=== PATIENT | male | born 1950 | race Caucasian/White ===

== ENCOUNTER 2020-04-04 08:15 | Outpatient (REF) | payer OTHER, SELFPAY ==
[2020-04-04 11:30] LABS: MANUAL DIFF FLAG NO
[2020-04-04 11:38] LABS: Basophils Absolute Auto 0.1 X10*3/uL (0.0-0.2); Basophils Percent Auto 0.8 % (0-2); Eosinophils Absolute Auto 0.2 X10*3/uL (0.0-0.4); Eosinophils Percent Auto 2.6 % (0-4); Hemoglobin 15.6 g/dl (14.0-18.0); Imm Gran Abs Auto 0.07 X10*3/uL (0.00-0.03); Imm Gran Pct Auto 0.9 % (0.0-0.4); Lymphocytes Absolute Auto 1.6 X10*3/uL (1.2-4.9); Lymphocytes Percent Auto 20.6 % (20-40); Mean Corpuscular HGB Conc 33.9 g/dl (31.0-36.0); Mean Corpuscular Hemoglobin 31.4 pg (27.0-33.0); Mean Corpuscular Volume 92.6 fL (80-98); Mean Platelet Volume 10.5 fL (9.4-12.4); Monocytes Absolute Auto 0.7 X10*3/uL (0.1-1.2); Monocytes Percent Auto 9.4 % (2-11); Neutrophils Absolute Auto 5.1 X10*3/uL (2.0-8.3); Neutrophils Percent Auto 65.7 % (45-73); Platelet Count 211 X10*3/uL (160-400); Red Blood Count 4.97 X10*6/uL (4.60-5.80); Red Cell Distribution Width 12.3 % (11.0-16.0); White Blood Count 7.8 X10*3/uL (4.8-10.8)
[2020-04-04 11:48] LABS: Estimated Average Glucose 117 mg/dL; Hemoglobin A1c % 5.7 %
[2020-04-04 11:51] LABS: Alanine Aminotransferase 24 U/L (0-40); Albumin Level 4.2 g/dL (3.5-5.0); Alkaline Phosphatase 49 U/L (39-117); Anion Gap 15 (12-20); Aspartate Amino Transferase 18 U/L (5-37); Bilirubin Total 0.6 mg/dL (0.0-1.0); Blood Urea Nitrogen 14 mg/dL (9-16); Calcium 8.4 mg/dL (8.4-10.2); Carbon Dioxide 26 mmol/L (22-29); Chloride 102 mmol/L (96-108); Cholesterol 203 mg/dL; Estimated Glomerular Filt Rate > 60; Glucose Fasting 108 mg/dL (60-99); HDL Cholesterol 35 mg/dL; LDL Cholesterol Calculated 123 mg/dl; Potassium 3.9 mmol/l (3.3-5.1); Sodium 139 mmol/L (135-145); Total Protein 7.5 g/dL (6.5-8.0); Triglycerides 225 mg/dL
== END 2020-04-04 08:16 | disposition home or self-care (01) ==
LOC: HO.HMGCLDS 08:15
PROVIDERS: PCP Internal Medicine; Visit Provider Internal Medicine
DX: R73.01 Impaired fasting glucose (principal); I10 Essential (primary) hypertension; E78.00 Pure hypercholesterolemia, unspecified; Z85.46 Personal history of malignant neoplasm of prostate
CPT/HCPCS: 36415; 80053; 80061; 83036; 85025

== ENCOUNTER 2021-05-17 07:38 | Outpatient (REF) | payer OTHER, SELFPAY ==
[2021-05-17 11:10] LABS: MANUAL DIFF FLAG NO
[2021-05-17 11:16] LABS: Basophils Percent Auto 0.7 % (0-2); Eosinophils Absolute Auto 0.1 X10*3/uL (0.0-0.4); Eosinophils Percent Auto 2.4 % (0-4); Hemoglobin 15.6 g/dl (14.0-18.0); Imm Gran Abs Auto 0.03 X10*3/uL (0.00-0.03); Imm Gran Pct Auto 0.5 % (0.0-0.4); Lymphocytes Absolute Auto 1.6 X10*3/uL (1.2-4.9); Lymphocytes Percent Auto 27.3 % (20-40); Mean Corpuscular HGB Conc 33.9 g/dl (31.0-36.0); Mean Corpuscular Hemoglobin 31.7 pg (27.0-33.0); Mean Corpuscular Volume 93.5 fL (80.0-98.0); Mean Platelet Volume 10.7 fL (9.4-12.4); Monocytes Absolute Auto 0.6 X10*3/uL (0.1-1.2); Monocytes Percent Auto 10.7 % (2-11); Neutrophils Absolute Auto 3.4 x10*3/uL (2.0-8.3); Neutrophils Percent Auto 58.4 % (45-73); Platelet Count 223 X10*3/uL (160-400); Red Blood Count 4.92 X10*6/uL (4.60-5.80); Red Cell Distribution Width 12.6 % (11.0-16.0); White Blood Count 5.9 X10*3/uL (4.8-10.8)
[2021-05-17 11:54] LABS: Alanine Aminotransferase 28 U/L (0-40); Albumin Level 4.4 g/dL (3.5-5.0); Alkaline Phosphatase 44 U/L (39-117); Anion Gap 16 (12-20); Aspartate Amino Transferase 22 U/L (5-37); Bilirubin Total 0.8 mg/dL (0.0-1.0); Blood Urea Nitrogen 14 mg/dL (9-16); Calcium 9.4 mg/dL (8.4-10.2); Carbon Dioxide 27 mmol/L (22-29); Chloride 102 mmol/L (96-108); Cholesterol 207 mg/dL; Estimated Glomerular Filt Rate > 60; Glucose Random 101 mg/dL (60-115); HDL Cholesterol 28 mg/dL; LDL Cholesterol Calculated 135 mg/dl; Potassium 3.8 mmol/L (3.3-5.1); Sodium 141 mmol/L (135-145); Total Protein 7.7 g/dL (6.5-8.0); Triglycerides 223 mg/dL
[2021-05-17 12:05] LABS: Free T4 (Free Thyroxine) 0.94 ng/dL (0.71-1.85); Prostate Specific Antigen < 0.05 ng/mL (<0.05-4.0); Thyroid Stimulating Hormone 2.55 uIU/mL (0.32-4.0)
[2021-05-17 12:18] LABS: Folate > 20.0 ng/mL (> or = 4.0); Vitamin B12 654 pg/mL (200-900)
[2021-05-17 14:21] LABS: Estimated Average Glucose 117 mg/dL; Hemoglobin A1c % 5.7 %
== END 2021-05-17 07:39 | disposition home or self-care (01) ==
LOC: HO.HMGCLDS 07:38
PROVIDERS: PCP Internal Medicine; Visit Provider Internal Medicine
DX: Z12.5 Encounter for screening for malignant neoplasm of prostate (principal); R73.02 Impaired glucose tolerance (oral); E78.00 Pure hypercholesterolemia, unspecified; C61 Malignant neoplasm of prostate; I10 Essential (primary) hypertension
CPT/HCPCS: 36415; 80053; 80061; 82607; 82746; 83036; 84153; 84439; 84443; 85025

== ENCOUNTER → 2022-06-21 11:04 | Outpatient (BNVA) | payer OTHER, SELFPAY | PROVIDERS: PCP Internal Medicine; Visit Provider Nurse Practitioner | DX: Z13.89 Encounter for screening for other disorder (principal) ==

== ENCOUNTER 2022-09-10 07:53 | Outpatient (REF) | payer OTHER, SELFPAY ==
[2022-09-10 11:39] LABS: MANUAL DIFF FLAG NO
[2022-09-10 11:59] LABS: Basophils Absolute Auto 0.1 X10*3/uL (0.0-0.2); Basophils Percent Auto 0.9 % (0-2); Eosinophils Absolute Auto 0.2 X10*3/uL (0.0-0.4); Eosinophils Percent Auto 2.3 % (0-4); Hematocrit 46.8 % (42.0-52.0); Hemoglobin 15.9 g/dl (14.0-18.0); Imm Gran Abs Auto 0.03 X10*3/uL (0.00-0.03); Imm Gran Pct Auto 0.5 % (0.0-0.4); Lymphocytes Absolute Auto 1.7 X10*3/uL (1.2-4.9); Lymphocytes Percent Auto 25.7 % (20-40); Mean Corpuscular Hemoglobin 31.8 pg (27.0-33.0); Mean Corpuscular Volume 93.6 fL (80.0-98.0); Mean Platelet Volume 10.7 fL (9.4-12.4); Monocytes Absolute Auto 0.6 X10*3/uL (0.1-1.2); Monocytes Percent Auto 9.5 % (2-11); Neutrophils Absolute Auto 3.9 x10*3/uL (2.0-8.3); Neutrophils Percent Auto 61.1 % (45-73); Platelet Count 229 X10*3/uL (160-400); Red Cell Distribution Width 12.5 % (11.0-16.0); White Blood Count 6.5 X10*3/uL (4.8-10.8)
[2022-09-10 12:55] LABS: Alanine Aminotransferase 20 U/L (0-40); Albumin Level 4.3 g/dL (3.5-5.0); Alkaline Phosphatase 47 U/L (39-117); Anion Gap 16 (12-20); Aspartate Amino Transferase 19 U/L (5-37); Bilirubin Total 1.1 mg/dL (0.0-1.0); Blood Urea Nitrogen 17 mg/dL (9-16); Calcium 9.3 mg/dL (8.4-10.2); Carbon Dioxide 26 mmol/L (22-29); Chloride 102 mmol/L (96-108); Cholesterol 191 mg/dL; Estimated Glomerular Filt Rate 59; Glucose Random 121 mg/dL (60-115); HDL Cholesterol 29 mg/dL; LDL Cholesterol Calculated 117 mg/dl; Sodium 140 mmol/L (135-145); Total Protein 7.5 g/dL (6.5-8.0); Triglycerides 228 mg/dL
[2022-09-10 13:00] LABS: Folate 16.5 ng/mL (> or = 4.0); Free T4 (Free Thyroxine) 0.82 ng/dL (0.71-1.85); Prostate Specific Antigen Scr < 0.10 ng/mL (<0.05-4.0); Thyroid Stimulating Hormone 3.46 uIU/mL (0.32-4.0); Vitamin B12 649 pg/mL (200-900)
== END 2022-09-10 07:54 | disposition home or self-care (01) ==
LOC: HO.HMGCLDS 07:53
PROVIDERS: PCP Internal Medicine; Visit Provider Internal Medicine
DX: E78.00 Pure hypercholesterolemia, unspecified (principal); C61 Malignant neoplasm of prostate; Z12.5 Encounter for screening for malignant neoplasm of prostate
CPT/HCPCS: 36415; 80053; 80061; 82607; 82746; 84153; 84439; 84443; 85025

== ENCOUNTER → 2022-10-01 11:21 | Outpatient (BNVA) | payer OTHER, SELFPAY | PROVIDERS: PCP Internal Medicine; Visit Provider Nurse Practitioner | DX: Z13.89 Encounter for screening for other disorder (principal) ==

== ENCOUNTER 2023-04-03 14:48 | Outpatient (AMB) | payer OTHER, SELFPAY ==
[2023-04-03 14:54] VITALS: BP 160/80; PULSE 100; O2SAT 98; BMI 27.5
--- NOTE | 2023-04-03 14:54 | A.OFFPC_ITS ---
Vital Signs 04/03/23 14:54 04/03/23 15:31 Height 5 ft 10 in Weight 192 lb BMI 27.5 BP 160/80 H 136/70 Blood Pressure Location Lt brachial Lt brachial Position Sitting Sitting Pulse 100 Pulse Source Pulse Oximeter Pulse Oximetry (%) 98 Oxygen Delivery Method Room Air Intake Visit Reasons: 6M Hypercholesterolemia/Switched with Allergies penicillin V Allergy (Mild, Verified 04/03/23 14:54) Unknown Medication List - Last Reconciled 04/03/23 by Thony Lopez MD coal tar 0.5% 1 appl topical 2XW hydrochlorothiazide 12.5 mg PO DAILY ketoconazole 2% 1 appl topical 3XW lactobacillus combination no.4 (Probiotic) 3,000 mmu cells PO DAILY lisinopril 20 mg PO DAILY loratadine (Claritin) 10 mg PO DAILY multivitamin 1 tab PO DAILY sod phos mono-sod phos dibasic 1.5 gram (OsmoPrep) 4 tabs PO Q15M 5 doses vardenafil 20 mg PO DAILY Tobacco use date assessed: 09/12/22 Fall risk assessment: No Falls in past year Last assessed Fall Risk: 04/03/23 Dental Screening Dental Screen Date: 04/03/23 Did you have a dental visit in the last 12 months?: Yes Did you have a dental problem in the last 6 months where you did not have access to dental care?: No Was dental information given to patient?: Patient has dentist HPI 6M Hypercholesterolemia/Switched with HPI Details 72-year-old overweight male smoker with a history of prostate cancer hypercholesterolemia impaired glucose tolerance hypertension last seen in September 2022 for physical exam. Patient's colonoscopy had positive Cologuard test colonography requested but denied by insurance advised to revisit next year [facility] Medical History Hx of flexible sigmoidoscopy Hypercholesterolemia Tobacco abuse Prostate cancer Impaired glucose tolerance Hypertension Surgical History H/O colonoscopy H/O prostatectomy History of inguinal hernia repair Family History Father Medical history unknown Mother Medical history unknown Social History Housing: House Alcohol intake: never Patient Tobacco Use Status: Former Tobacco user Years Smoked: smokes cigars e-Cigarette/Vaping Use: Never Used Second Hand Smoke Exposure: No service: No Current occupational status: retired Cognitive needs: No Hearing needs: No Vision needs: Yes Questionnaire PHQ-9 Over the last 2 weeks, how often have you been bothered by any of the following problems? 1. Little interest or pleasure in doing things: not at all 2. Feeling down, depressed, or hopeless: not at all 3. Trouble falling or staying asleep, or sleeping too much: not at all 4. Feeling tired or having little energy: not at all 5. Poor appetite or overeating: not at all 6. Feeling bad about yourself - or that you are a failure or have let yourself or your family down: not at all 7. Trouble concentrating on things, such as reading the newspaper or watching television: not at all 8. Moving or speaking so slowly that other people could have noticed. Or the opposite - being so fidgety or restless that you have been moving around a lot more than usual: not at all 9. Thoughts that you would be better off or of hurting yourself in some way: not at all Total score: 0 Depression Screening Interpretation: Negative Depression Screening Done: Yes Source: Developed by Drs. Booker Osuna, Winston Bassett and colleagues, with an educational aguilar from [employer]. Thrive Questionnaire Date Thrive assessed: 09/12/22 AUDIT C Alcohol Use Questionnaire (AUDIT-C) 1. How often do you have a drink containing alcohol?: Never 3. How often do you have six or more drinks on one occasion?: Never Total Score: 0 QUANG-7 AMB Questionnaire QUANG-7 Date QUANG - 7 assessed: 09/12/22 Source: Developed by Drs. Booker Osuna, Winston Bassett and colleagues, with an educational aguilar from [employer]. Physical exam (Primary Care) Vital Signs: Last Vital Signs Pulse 100 04/03/23 14:54 BP 160/80 H 04/03/23 14:54 Pulse Ox 98 04/03/23 14:54 Oxygen Delivery Method Room Air 04/03/23 14:54 BMI result Body Mass Index 27.5 Tobacco/Smoking Status: Tobacco use Status Tobacco use date assessed 09/12/22 04/03/23 14:55 Patient Tobacco Use Status Former Tobacco user 04/03/23 14:55 e-Cigarette/Vaping Use Never Used 04/03/23 14:55 PHQ-9: PHQ-9 Score PHQ-9: Total score 0 04/03/23 15:16 Depression Screening Interpretation: Negative Thrive Assessment: Date of Thrive Assessment Date Thrive assessed 09/12/22 04/03/23 14:55 Const General: alert; No acute distress Eyes Conjunctivae: conjunctivae normal Resp Auscultation: clear to auscultation bilaterally Cardio Rate: regular rate Rhythm: regular rhythm GI Inspection: Yes normal to inspection Extrem General: Yes normal to inspection and No edema Office Procedures Flu Questionnaire Does the patient have a severe egg allergy?: No Does the patient have severe life threatening allergies?: No Does the patient have a fever or illness today?: No Has the patient ever had Guillain-Denver Syndrome?: No Has the patient ever had any past reaction to a flu shot?: No Immunizations flu vacc [id number] 6mos up(PF) 60 mcg(15 mcgx4)/0.5 mL IM syringe Performing Provider: Thony Lopez MD [facility] Administered by: CHRISTOPHER Colin on 04/03/23 15:17 Dose Route Admin Location Dispensed Lot Number Expiration Date NDC [employer]ting Supervisor 0.5 mL IM Left Deltoid 0.5 mL [id number] 12/07/23 [id number] [employer] VIS Given Date VIS Provided VIS Publication Date 04/03/23 Single Vaccine 21 Eligibility Eligibility Date Funding Source Not [facility] Eligible 04/03/23 Private Assessment and Plan Assessment & Plan (1) Positive colorectal cancer screening using Cologuard test: Comment: 12/2021 Code(s): R19.5 - Other fecal abnormalities Plan: Patient has met with gastroenterology and will consider testing next year (2) Prostate cancer: Comment: 1999 Code(s): C61 - Malignant neoplasm of prostate Plan: Stable (3) Tobacco abuse: Code(s): Z72.0 - Tobacco use Plan: Strongly advised to stop summation point (4) Hypercholesterolemia: Code(s): E78.00 - Pure hypercholesterolemia, unspecified Plan: Avoid fried foods, chicken skin, eggs, butter margarine, pastries and meat. Be it pork or beef they have a lot of cholesterol LDL goal of less than 130 and triglyceride of less than 150 (5) Impaired glucose tolerance: Code(s): R73.02 - Impaired glucose tolerance (oral) Plan: Decrease the amount of carbohydrate intake, pasta, bread, rice and potatoes are all sugar and that is aside from all the sweet stuff, remember that fruits are good but they are Sweet also. (6) Hypertension: Comment: cont same meds Code(s): I10 - Essential (primary) hypertension Plan: Continue with blood pressure medication. Decrease salt intake and exercise patient takes lisinopril 20 mg once a day and hydrochlorothiazide 12.5 mg once a day (7) Eczema: Code(s): L30.9 - Dermatitis, unspecified (8) Tinea cruris: Code(s): B35.6 - Tinea cruris Orders: Orders Influenza [id number] Immunization Today Z23 - Encounter for immunization Comprehensive Met. Panel 6 Months R73.02 - Impaired glucose tolerance (oral) Thyroid Stimulating Hormone 6 Months R73.02 - Impaired glucose tolerance (oral) Hemoglobin A1c 6 Months R73.02 - Impaired glucose tolerance (oral) Free T4 (Free Thyroxine) 6 Months R73.02 - Impaired glucose tolerance (oral) Complete Blood Count Auto Diff 6 Months R73.02 - Impaired glucose tolerance (oral) Lipid Panel 6 Months E78.00 - Pure hypercholesterolemia, unspecified Vitamin B12 and Folate 6 Months E78.00 - Pure hypercholesterolemia, unspecified Medications: New clotrimazole 1% 1 appl topical BID 4 weeks 45 grams 0RF B35.6 - Tinea cruris mometasone 0.1% 1 appl topical DAILY 2 weeks 45 grams 0RF L30.9 - Dermatitis, unspecified Coding Level of Care Code Est Pt Level 4 (80772) Diagnoses Positive colorectal cancer screening using Cologuard test R19.5 Prostate cancer C61 Tobacco abuse Z72.0 Hypercholesterolemia E78.00 Impaired glucose tolerance R73.02 Hypertension I10 Eczema L30.9 Tinea cruris B35.6
[2023-04-03 15:31] VITALS: BP 136/70
== END 2023-04-03 15:44 | disposition home or self-care (01) ==
PROVIDERS: PCP Internal Medicine; Visit Provider Internal Medicine
DX: R19.5 Other fecal abnormalities (principal); C61 Malignant neoplasm of prostate; Z72.0 Tobacco use; E78.00 Pure hypercholesterolemia, unspecified; R73.02 Impaired glucose tolerance (oral); I10 Essential (primary) hypertension; L30.9 Dermatitis, unspecified; B35.6 Tinea cruris; Z23 Encounter for immunization
CPT/HCPCS: 90471; 90686; 99214

== ENCOUNTER 2023-10-01 12:02 | Outpatient (AMB) | payer OTHER, SELFPAY ==
--- NOTE | 2023-10-01 12:10 | A.OFFVIS_ITS ---
Vital Signs 10/01/23 12:17 Height 5 ft 10 in Weight 195 lb 5.273 oz BMI 28.0 BP 160/77 H Blood Pressure Location Lt brachial Position Sitting Pulse 81 Intake Visit Reasons: 1 yr follow up Intake Note: Patient presents to in office visit today in a 1 year follow up to discuss colonoscopy prep. CC: Patient denies having any GI symptoms or concerns. Hygiene Assistant Required: No Accompanied by: Self / Same As Patient Allergies penicillin V Allergy (Mild, Verified 10/01/23 12:19) Unknown HPI HPI 1 yr follow up: Details: Assessment & Plan (1) Positive colorectal cancer screening using Cologuard test: Code(s): R19.5 - Other fecal abnormalities Plan: WE DISCUSSED ALL OF THE PATIENT'S OPTIONS AND HE UNDERSTANDS that he is at risk for colorectal cancer without any screenings. However, he had a very hard time with the prep and apparently has a chronic nausea/vomiting problem at his baseline. He would be interested if we could get pill prep covered but this time only OsmoPrep is covered not suit tab and that is not currently available. 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 He is actually not while about having a colonoscopy at all but he does understand that having a positive Cologuard is concerning. It is not that I think he immediately as colon cancer but he likely has a polyp that needs to come out to ensure his best future Colon Health. This is especially true be cause he is otherwise fairly healthy. At this point we think it is fair to revisit the problem any year. At that point either his insurance coverage may expand what they will except as a pill prep and or the OsmoPrep may again become available. He agrees that this is a good option. CORRESPONDENCE On 10/01/22 @ 07:25 Leanna Colon Wrote To VikiTonia Per Radiology & CT dept, CT Colonography is only performed if a previous colonoscopy was inconclusive or incomplete. Patient did have an appt scheduled for a colonoscopy on 05/29/22 but it had to be cancelled because the patient could not tolerate the prep. Please advise. On 09/30/22 @ 11:50 Tonia Drew Wrote To Erica Taylor (2) This patient is on my schedule for Friday but never did CT colonography.? Please call find out what happened with that since this appointment is pretty much wasted without having that information. TODAY'S VISIT He could not tolerate any prep covered by his insurance either large ro smaller volume. It causes him to vomit and when he vomits ?I will vomit for 3 or 4 days continuously. ? At this point he is unwilling to try again. The only hope I hold out is if his insurance decides to cover sutab, although he has some doubts because ?is it the same stuff liquid is made of? ? I give him the name of the medication he will call once a year to determine if this becomes covered. At this point he understands the risks versus benefits of avoiding colonoscopy with a positive Cologuard and he opts to wait. Return office visit as needed. [facility] Medical History Hx of flexible sigmoidoscopy Hypercholesterolemia Tobacco abuse Prostate cancer Impaired glucose tolerance Hypertension Surgical History H/O colonoscopy H/O prostatectomy History of inguinal hernia repair Family History Father Medical history unknown Mother Medical history unknown Social History Housing: House Alcohol intake: never Patient Tobacco Use Status: Former Tobacco user Years Smoked: smokes cigars e-Cigarette/Vaping Use: Never Used Second Hand Smoke Exposure: No service: No Current occupational status: retired Cognitive needs: No Hearing needs: No Vision needs: Yes Review of Systems Const Denies fatigue, Denies fever(s), Denies night sweats, Denies poor appetite and Denies weight loss ENT Reports Normal hearing present, Denies dental pain, Denies dysphagia, Denies hearing loss, Denies mouth pain, Denies odynophagia, Denies throat swelling, Denies tongue swelling and Reports other (Dentition adequate) Card Reports no additional complaints Resp Reports no additional complaints GI Details: Denies abdominal pain, Denies melena, Denies bloating, Denies hematochezia, Denies constipation, Denies GI cramping, Denies dysphagia, Denies excessive flatus, Denies early satiety, Denies heartburn, Denies diarrhea, Denies nausea, Denies odynophagia, Denies vomiting and Denies hematemesis Skin/Breast Denies pruritus, Denies lesions, Denies rash and Denies jaundice Neuro Reports Normal hearing present and Denies Abnormal speech present Endo Denies fatigue Aller/Immun Denies throat swelling and Denies tongue swelling Physical Exam Vital Signs: Last Vital Signs Pulse 81 10/01/23 12:17 BP 160/77 H 10/01/23 12:17 BMI result Body Mass Index 28.0 Const General: cooperative, no acute distress, well developed and well groomed Nutritional Appearance: average body habitus and well nourished Orientation/consciousness: oriented to person, oriented to place and oriented to time Limitations: No language barrier HEENT Head: Yes normocephalic and Yes atraumatic Eyes General: appearance normal, both eyes and all related structures Pupils: Equal, round and reactive pupils present Neck Neck: Yes normal visual inspection and Yes no lymphadenopathy Thyroid: Thyroid normal Resp Effort & Inspection: normal respiratory effort and able to speak in complete sentences Auscultation: clear to auscultation bilaterally Cardio Rate: regular rate Rhythm: regular rhythm Heart sounds: Normal, physiologic split S2 sound present Peripheral pulses: radial pulses present and posterior tibial pulses present GI Inspection: No distended and No Abdominal panniculus present Palpation (GI): Soft to palpation, nontender, no guarding, not rigid and No hepatosplenomegaly present Percussion: Yes normal to percussion Auscultation: normal bowel sounds Rectal Exam - Male: Yes deferred Skin General skin exam: no rashes or lesions noted, turgor normal, skin not dry, no jaundice, No spider nevi and no striae Rashes: no rashes Nails: normal Neuro General: oriented to person, oriented to place and oriented to time Cranial nerves: Yes Equal, round and reactive pupils present and Yes Normal hearing present Speech: No Abnormal speech present Extrem General: Yes normal to inspection, No clubbing, No cyanosis and No edema Psych Appearance: grossly normal and well kempt Mental Status: mental status grossly normal Speech and movement: Normal speech and movement present Affect: normal affect Attitude: cooperative Thought process: Normal thought process present and not confabulating Thought content: Normal thought content present Insight: Fair insight present (Psych) Judgement: Fair judgement present (Psych) Assessment & Plan Assessment & Plan (1) Positive colorectal cancer screening using Cologuard test: Comment: 12/2021 Code(s): R19.5 - Other fecal abnormalities Category: Medical (2) Colonoscopy refused: Comment: Patient could not tolerate any the prep drinks either PEG or the lower volume Suprep waiting for possible insurance to approve suit tab Code(s): Z53.20 - Procedure and treatment not carried out because of patient's decision for unspecified reasons Category: Medical Plan He could not tolerate any prep covered by his insurance either large ro smaller volume. It causes him to vomit and when he vomits ?I will vomit for 3 or 4 days continuously. ? At this point he is unwilling to try again. The only hope I hold out is if his insurance decides to cover suit tab, although he has some doubts because ?is it the same stuff liquid is made of? ? I give him the name of the medication he will call once a year to determine if this becomes covered. At this point he understands the risks versus benefits of avoiding colonoscopy with a positive Cologuard and he opts to wait. Return office visit as needed. Medications: Discontinued sod phos mono-sod phos dibasic 1.5 gram (OsmoPrep) administer with 240 mL of clear fluid Discontinued Reason: Patient Completed Course 4 tabs PO Q15M 32 tabs 0RF R19.5 - Other fecal abnormalities Coding Level of Care Code Est Pt Level 3 (48556) Diagnoses Positive colorectal cancer screening using Cologuard test R19.5 Colonoscopy refused Z53.20
[2023-10-01 12:17] VITALS: BP 160/77; PULSE 81; BMI 28.0
== END 2023-10-01 12:38 | disposition home or self-care (01) ==
PROVIDERS: PCP Internal Medicine; Visit Provider Nurse Practitioner
DX: R19.5 Other fecal abnormalities (principal); Z53.20 Procedure and treatment not carried out because of patient's decision for unspecified reasons
CPT/HCPCS: 99213

== ENCOUNTER → 2023-10-01 12:02 | Outpatient (BNVA) | payer OTHER, SELFPAY | PROVIDERS: PCP Internal Medicine; Visit Provider Nurse Practitioner ==

== ENCOUNTER 2024-03-03 08:23 | Outpatient (REF) | payer OTHER, SELFPAY ==
[2024-03-03 10:12] LABS: Basophils Absolute Auto 0.1 X10*3/uL (0.0-0.2); Basophils Percent Auto 1.4 % (0-2); Eosinophils Absolute Auto 0.2 X10*3/uL (0.0-0.4); Eosinophils Percent Auto 2.6 % (0-4); Hematocrit 44.6 % (42.0-52.0); Hemoglobin 15.5 g/dl (14.0-18.0); Imm Gran Abs Auto 0.02 X10*3/uL (0.00-0.03); Imm Gran Pct Auto 0.3 % (0.0-0.4); Lymphocytes Absolute Auto 1.5 X10*3/uL (1.2-4.9); Lymphocytes Percent Auto 22.7 % (20-40); MANUAL DIFF FLAG NO; Mean Corpuscular HGB Conc 34.8 g/dl (31.0-36.0); Mean Corpuscular Hemoglobin 31.6 pg (27.0-33.0); Mean Platelet Volume 10.2 fL (9.4-12.4); Monocytes Absolute Auto 0.7 X10*3/uL (0.1-1.2); Monocytes Percent Auto 10.4 % (2-11); Neutrophils Percent Auto 62.6 % (45-73); Platelet Count 214 X10*3/uL (160-400); Red Cell Distribution Width 12.5 % (11.0-16.0); White Blood Count 6.4 X10*3/uL (4.8-10.8)
[2024-03-03 10:31] LABS: Estimated Average Glucose 111 mg/dL; Hemoglobin A1c % 5.5 % (<6.0); Total Hemoglobin (HGBA1C) 3830.1022 umol/L
[2024-03-03 10:39] LABS: Alanine Aminotransferase 19 U/L (0-40); Albumin Level 4.2 g/dL (3.5-5.0); Alkaline Phosphatase 46 U/L (39-117); Anion Gap 12 (12-20); Aspartate Amino Transferase 19 U/L (5-37); Bilirubin Total 0.7 mg/dL (0.0-1.0); Blood Urea Nitrogen 14 mg/dL (9-16); Calcium 9.5 mg/dL (8.4-10.2); Carbon Dioxide 28 mmol/L (22-29); Chloride 104 mmol/L (96-108); Cholesterol 187 mg/dL (<200); Estimated Glomerular Filt Rate 60; Glucose Random 114 mg/dL (60-115); HDL Cholesterol 30 mg/dL (>40); LDL Cholesterol Calculated 126 mg/dL (<100); Potassium 3.6 mmol/L (3.3-5.1); Sodium 140 mmol/L (135-145); Total Protein 7.8 g/dL (6.5-8.0); Triglycerides 155 mg/dL (<150)
[2024-03-03 10:59] LABS: Folate 14.4 ng/mL (> or = 4.0); Vitamin B12 812 pg/mL (200-900)
[2024-03-03 11:01] LABS: Free T4 (Free Thyroxine) 0.93 ng/dL (0.71-1.85)
== END 2024-03-03 08:24 | disposition home or self-care (01) ==
LOC: HO.HMGCLDS 08:23
PROVIDERS: PCP Internal Medicine; Visit Provider Internal Medicine
DX: R73.02 Impaired glucose tolerance (oral) (principal); E78.00 Pure hypercholesterolemia, unspecified
CPT/HCPCS: 36415; 80053; 80061; 82607; 82746; 83036; 84439; 84443; 85025

== ENCOUNTER 2024-03-05 13:21 | Outpatient (AMB) | payer OTHER, SELFPAY ==
--- NOTE | 2024-03-05 13:31 | A.OFFPC_ITS ---
Vital Signs 03/05/24 13:32 Height 5 ft 10 in Weight 187 lb 2 oz BMI 26.8 BP 128/72 Blood Pressure Location Lt brachial Position Sitting Pulse 82 Pulse Source Pulse Oximeter Pulse Oximetry (%) 97 Oxygen Delivery Method Room Air Intake Visit Reasons: PE Intake Note: Patient is here today for a physical. Mar[place] Carver Required: No Body Trimmer: Not Required per policy Accompanied by: Self / Same As Patient Allergies penicillin V Allergy (Mild, Verified 03/05/24 13:32) Unknown Medication List - Last Reconciled 03/05/24 by Thony Lopez MD clotrimazole 1% 1 appl topical BID 4 weeks coal tar 0.5% 1 appl topical 2XW hydrochlorothiazide 12.5 mg PO DAILY ketoconazole 2% 1 appl topical 3XW lactobacillus combination no.4 (Probiotic) 3,000 mmu cells PO DAILY lisinopril 20 mg PO DAILY loratadine (Claritin) 10 mg PO DAILY mometasone 0.1% 1 appl topical DAILY 2 weeks multivitamin 1 tab PO DAILY triamcinolone acetonide 0.1% 1 appl topical BID vardenafil 20 mg PO DAILY Tobacco use date assessed: 03/05/24 Fall risk assessment: No Falls in past year Last assessed Fall Risk: 03/05/24 Dental Screening Dental Screen Date: 03/05/24 Did you have a dental visit in the last 12 months?: Yes Did you have a dental problem in the last 6 months where you did not have access to dental care?: No Was dental information given to patient?: Patient has dentist HPI PE HPI Details 73-year-old male(noted 8 lb weight loss) smoker with prostate cancer hypercholesterolemia impaired glucose tolerance hypertension coming in for physical exam last seen in 03/28/2023. Patient follows up with Gastroenterology 09/27/2023 declined colonoscopy. [facility] Medical History (Updated 03/05/24 @ 13:59 by Thony Lopez MD) Colon cancer screening Hx of flexible sigmoidoscopy Hypercholesterolemia Tobacco abuse Prostate cancer Impaired glucose tolerance Hypertension Surgical History H/O colonoscopy H/O prostatectomy History of inguinal hernia repair Family History Father Medical history unknown Mother Medical history unknown Social History Housing: House Alcohol intake: never Patient Tobacco Use Status: Former Tobacco user Years Smoked: smokes cigars e-Cigarette/Vaping Use: Never Used Second Hand Smoke Exposure: No service: No Current occupational status: retired Cognitive needs: No Hearing needs: No Vision needs: Yes Questionnaire PHQ-9 Over the last 2 weeks, how often have you been bothered by any of the following problems? 1. Little interest or pleasure in doing things: not at all 2. Feeling down, depressed, or hopeless: not at all 3. Trouble falling or staying asleep, or sleeping too much: not at all 4. Feeling tired or having little energy: not at all 5. Poor appetite or overeating: not at all 6. Feeling bad about yourself - or that you are a failure or have let yourself or your family down: not at all 7. Trouble concentrating on things, such as reading the newspaper or watching television: not at all 8. Moving or speaking so slowly that other people could have noticed. Or the opposite - being so fidgety or restless that you have been moving around a lot more than usual: not at all 9. Thoughts that you would be better off or of hurting yourself in some way: not at all Total score: 0 Depression Screening Interpretation: Negative Depression Screening Done: Yes Source: Developed by Drs. Booker Osuna, Kriss Karimi, Winston Lee and colleagues, with an educational aguilar from [employer]. Thrive Questionnaire Date Thrive assessed: 03/05/24 I am a: Patient What is your living situation today?: I have a steady place to live Within the past 12 months, did the food you bought not last and you didn't have the money to get more?: Never true Within the past 12 months, did you worry whether your food would run out before you got money to buy more?: Never true Do you have trouble paying for medicines?: No Do you have trouble getting transportation to medical appointments?: No Do you have trouble paying your heating and electricity bill?: No Do you have trouble taking care of your child, family member or friend?: No Do you have trouble with day-to-day activities such as bathing, preparing meals, shopping, managing finances, etc.?: No Are you currently unemployed and looking for a job?: No Are you interested in more education?: No Please select the resources that you would like help with: None Currently or been in a relationship where the following occur: No concerns reported THRIVE Score: 0 AUDIT C Alcohol Use Questionnaire (AUDIT-C) 1. How often do you have a drink containing alcohol?: Monthly or less 2. How many drinks containing alcohol do you have on a typical day when you are drinking?: 1 or 2 3. How often do you have six or more drinks on one occasion?: Never Total Score: 1 QUANG-7 AMB Questionnaire QUANG-7 Date QUANG - 7 assessed: 03/05/24 Feeling nervous, anxious, or on edge: 0 = Not at all Not being able to stop or control worryin = Not at all Worrying too much about different things: 0 = Not at all Trouble relaxin = Not at all Being so restless that it is hard to sit still: 0 = Not at all Becoming easily annoyed or irritable: 0 = Not at all Feeling afraid as if something awful might happen: 0 = Not at all Total QUANG-7 score (0-4 normal; 5-9 mild; 10-14 moderate; 15-21 severe): 0 Source: Developed by Drs. Booker Osuna, Kriss Karimi, Winston Lee and colleagues, with an educational aguilar from [employer]. Review of Systems Const Denies poor appetite and Denies weakness Eyes Denies no additional complaints ENT Reports Normal hearing present, Denies dizziness, Denies nasal congestion, Denies tinnitus and Denies sore throat Card Denies chest pain, Denies syncope, Denies rapid heart rate and Denies dyspnea Resp Denies cough and Denies dyspnea GI Denies change in stool character, Reports constipation, Denies diarrhea, Denies nausea and Denies vomiting Denies dysuria and Denies urinary frequency Neuro Reports Normal hearing present, Denies confusion, Denies dizziness, Denies sync ope and Denies weakness Psych Denies confusion Physical exam (Primary Care) Vital Signs: Last Vital Signs Pulse 82 03/05/24 13:32 BP 128/72 03/05/24 13:32 Pulse Ox 97 03/05/24 13:32 Oxygen Delivery Method Room Air 03/05/24 13:32 BMI result Body Mass Index 26.8 Tobacco/Smoking Status: Tobacco use Status Tobacco use date assessed 03/05/24 03/05/24 13:37 Patient Tobacco Use Status Former Tobacco user 03/05/24 13:37 e-Cigarette/Vaping Use Never Used 03/05/24 13:37 PHQ-9: PHQ-9 Score PHQ-9: Total score 0 03/05/24 13:37 Depression Screening Interpretation: Negative Thrive Assessment: Date of Thrive Assessment Date Thrive assessed 03/05/24 03/05/24 13:37 Currently or been in a relationship where the following occur: No concerns reported Const General: No confusion Orientation/consciousness: No confusion HENMT Head: Yes normocephalic Ears: external ears normal and TM's normal bilaterally Face and sinus: Yes normal facial exam Mouth: moist mucous membranes Throat: Yes tonsils normal Eyes Conjunctivae: conjunctivae normal Pupils: Equal, round and reactive pupils present and Pupil accommodation reflex normal Direct Ophthalmoscopy: normal light reflex Neck Neck: No lymphadenopathy Thyroid: Thyroid normal Chest Chest palpation & inspection: normal inspection of the chest Resp Effort & Inspection: normal respiratory effort and no audible wheezes Auscultation: clear to auscultation bilaterally, no crackles, no wheezes and lung sounds not diminished Cardio Rate: regular rate Rhythm: regular rhythm Peripheral pulses: radial pulses present and dorsalis pedis present GI Palpation (GI): no masses Auscultation: normal bowel sounds and normoactive bowel sounds Rectal Exam - Male: Yes deferred Skin General skin exam: no rashes or lesions noted Rashes: no rashes Neuro General: No confusion Cranial nerves: Yes Equal, round and reactive pupils present and Yes Normal hearing present Cognition (Neuro): normal cognition Gait exam (Neuro): Normal gait present Motor exam (neuro): 5/5 motor strength present throughout Deep tendon reflexes (DTR's): Right brachioradialis reflex intensity grade: 2+, Left brachioradialis reflex intensity grade: 2+, Right patellar reflex intensity grade: 2+ and Left patellar reflex intensity grade: 2+ Extrem General: No edema Assessment and Plan Assessment & Plan (1) Annual physical exam: Code(s): Z00.00 - Encounter for general adult medical examination without abnormal findings Plan: Patient is advised to eat healthy, keep well hydrated, keep active and have adequate sleep. (2) Colonoscopy refused: Comment: Patient could not tolerate any the prep drinks either PEG or the lower volume Suprep waiting for possible insurance to approve suit tab Code(s): Z53.20 - Procedure and treatment not carried out because of patient's decision for unspecified reasons Plan: Did received notes from Gastroenterology and declined colonoscopy (3) Prostate cancer: Comment: 1999 Code(s): C61 - Malignant neoplasm of prostate Plan: Stable (4) Tobacco abuse: Code(s): Z72.0 - Tobacco use Plan: Patient is strongly advised to stop smoking! (5) Hypercholesterolemia: Code(s): E78.00 - Pure hypercholesterolemia, unspecified Plan: Avoid fried foods, chicken skin, eggs, butter margarine, pastries and meat. Be it pork or beef they have a lot of cholesterol LDL goal of less than 130 and triglyceride of less than 150 (6) Impaired glucose tolerance: Code(s): R73.02 - Impaired glucose tolerance (oral) Plan: Decrease the amount of carbohydrate intake, pasta, bread, rice and potatoes are all sugar and that is aside from all the sweet stuff, remember that fruits are good but they are Sweet also. (7) Hypertension: Comment: cont same meds Code(s): I10 - Essential (primary) hypertension Plan: Continue with blood pressure medication. Decrease salt intake and exercise patient is on hydrochlorothiazide and lisinopril (8) Psoriasis: Code(s): L40.9 - Psoriasis, unspecified Coding Level of Care Code Est Pt Prev Care >65y(76830) Diagnoses Annual physical exam Z00.00 Colonoscopy refused Z53.20 Prostate cancer C61 Tobacco abuse Z72.0 Hypercholesterolemia E78.00 Impaired glucose tolerance R73.02 Hypertension I10 Psoriasis L40.9
[2024-03-05 13:32] VITALS: BP 128/72; PULSE 82; O2SAT 97; BMI 26.8
== END 2024-03-05 14:15 | disposition home or self-care (01) ==
PROVIDERS: PCP Internal Medicine; Visit Provider Internal Medicine
DX: Z00.00 Encounter for general adult medical examination without abnormal findings (principal); Z53.20 Procedure and treatment not carried out because of patient's decision for unspecified reasons; C61 Malignant neoplasm of prostate; Z72.0 Tobacco use; E78.00 Pure hypercholesterolemia, unspecified; R73.02 Impaired glucose tolerance (oral); I10 Essential (primary) hypertension; L40.9 Psoriasis, unspecified

== ENCOUNTER → 2024-03-05 13:21 | Outpatient (BNVA) | payer OTHER, SELFPAY | PROVIDERS: PCP Internal Medicine; Visit Provider Internal Medicine | DX: Z00.00 Encounter for general adult medical examination without abnormal findings (principal); C61 Malignant neoplasm of prostate; E78.00 Pure hypercholesterolemia, unspecified; R73.02 Impaired glucose tolerance (oral); I10 Essential (primary) hypertension; L40.9 Psoriasis, unspecified; Z79.899 Other long term (current) drug therapy; Z72.0 Tobacco use | CPT/HCPCS: 96127 ==

== ENCOUNTER 2024-08-26 10:02 | Outpatient (AMB) | payer OTHER, SELFPAY ==
--- NOTE | 2024-08-26 10:06 | A.OFFVIS_ITS ---
Intake Visit Reasons: Hypertension Allergies penicillin V Allergy (Mild, Verified 03/05/24 13:32) Unknown [facility] Medical History (Updated 03/05/24 @ 13:59 by Thony Lopez MD) Colon cancer screening Hx of flexible sigmoidoscopy Hypercholesterolemia Tobacco abuse Prostate cancer Impaired glucose tolerance Hypertension Surgical History H/O colonoscopy H/O prostatectomy History of inguinal hernia repair Family History Father Medical history unknown Mother Medical history unknown Social History Housing: House Alcohol intake: never Patient Tobacco Use Status: Former Tobacco user Years Smoked: smokes cigars e-Cigarette/Vaping Use: Never Used Second Hand Smoke Exposure: No service: No Current occupational status: retired Cognitive needs: No Hearing needs: No Vision needs: Yes Physical Exam Const General: alert; No acute distress Eyes Conjunctivae: conjunctivae normal Resp Auscultation: clear to auscultation bilaterally Cardio Rate: regular rate Rhythm: regular rhythm GI Inspection: Yes normal to inspection Extrem General: Yes normal to inspection and No edema Assessment & Plan Assessment & Plan (1) Hypertension: Comment: cont same meds Code(s): I10 - Essential (primary) hypertension Category: Medical Plan: Continue with blood pressure medication. Decrease salt intake and exercise on hydrochlorothiazide 12.5 mg once a day lisinopril 20 mg once a day (2) Impaired glucose tolerance: Code(s): R73.02 - Impaired glucose tolerance (oral) Category: Medical Plan: Decrease the amount of carbohydrate intake, pasta, bread, rice and potatoes are all sugar and that is aside from all the sweet stuff, remember that fruits are good but they are Sweet also. (3) Tobacco abuse: Code(s): Z72.0 - Tobacco use Category: Medical Plan: Patient is strongly advised to stop smoking (4) Hypercholesterolemia: Code(s): E78.00 - Pure hypercholesterolemia, unspecified Category: Medical Plan: Avoid fried foods, chicken skin, eggs, butter margarine, pastries and meat. Be it pork or beef they have a lot of cholesterol LDL goal of less than 130 and triglyceride of less than 150. (5) Psoriasis: Code(s): L40.9 - Psoriasis, unspecified Category: Medical Plan: Continue to follow-up with dermatology Coding Level of Care Code Est Pt Level 4 (60407) Diagnoses Hypertension I10 Impaired glucose tolerance R73.02 Tobacco abuse Z72.0 Hypercholesterolemia E78.00 Psoriasis L40.9
--- NOTE | 2024-08-26 10:08 | MHC.PC.OV ---
Vital Signs 08/26/24 10:10 Height 5 ft 10 in Weight 194 lb BMI 27.8 BP 160/72 H Blood Pressure Location Lt brachial Position Sitting Pulse 87 Pulse Source Pulse Oximeter Pulse Oximetry (%) 96 Oxygen Delivery Method Room Air Intake Visit Reasons: Hypertension Allergies penicillin V Allergy (Mild, Verified 08/26/24 10:10) Unknown Medication List - Last Reconciled 08/26/24 by Thony Lopez MD clotrimazole 1% 1 appl topical BID 4 weeks coal tar 0.5% 1 appl topical 2XW hydrochlorothiazide 12.5 mg PO DAILY ketoconazole 2% 1 appl topical 3XW lactobacillus combination no.4 (Probiotic) 3,000 mmu cells PO DAILY lisinopril 20 mg PO DAILY loratadine (Claritin) 10 mg PO DAILY mometasone 0.1% 1 appl topical DAILY 2 weeks multivitamin 1 tab PO DAILY triamcinolone acetonide 0.1% 1 appl topical BID vardenafil 20 mg PO DAILY Tobacco use date assessed: 08/26/24 Fall risk assessment: No Falls in past year Last assessed Fall Risk: 08/26/24 Dental Screening Dental Screen Date: 08/26/24 Did you have a dental visit in the last 12 months?: Yes Did you have a dental problem in the last 6 months where you did not have access to dental care?: No Was dental information given to patient?: Patient has dentist [facility] Medical History (Updated 03/05/24 @ 13:59 by Thony Lopez MD) Colon cancer screening Hx of flexible sigmoidoscopy Hypercholesterolemia Tobacco abuse Prostate cancer Impaired glucose tolerance Hypertension Surgical History H/O colonoscopy H/O prostatectomy History of inguinal hernia repair Family History Father Medical history unknown Mother Medical history unknown Social History Housing: House Alcohol intake: never Patient Tobacco Use Status: Former Tobacco user Tobacco use type: Cigarette Years Smoked: smokes cigars e-Cigarette/Vaping Use: Never Used Second Hand Smoke Exposure: No service: No Current occupational status: retired Cognitive needs: No Hearing needs: No Vision needs: Yes Questionnaire PHQ-9 Over the last 2 weeks, how often have you been bothered by any of the following problems? 1. Little interest or pleasure in doing things: not at all 2. Feeling down, depressed, or hopeless: not at all 3. Trouble falling or staying asleep, or sleeping too much: not at all 4. Feeling tired or having little energy: not at all 5. Poor appetite or overeating: not at all 6. Feeling bad about yourself - or that you are a failure or have let yourself or your family down: not at all 7. Trouble concentrating on things, such as reading the newspaper or watching television: not at all 8. Moving or speaking so slowly that other people could have noticed. Or the opposite - being so fidgety or restless that you have been moving around a lot more than usual: not at all 9. Thoughts that you would be better off or of hurting yourself in some way: not at all Total score: 0 Depression Screening Interpretation: Negative Depression Screening Done: Yes Source: Developed by Drs. Booker Osuna, Kriss Karimi, Winston Lee and colleagues, with an educational aguilar from [employer]. Thrive Questionnaire Date Thrive assessed: 08/26/24 I am a: Patient What is your living situation today?: I have a steady place to live Within the past 12 months, did the food you bought not last and you didn't have the money to get more?: Never true Within the past 12 months, did you worry whether your food would run out before you got money to buy more?: Never true Do you have trouble paying for medicines?: No Do you have trouble getting transportation to medical appointments?: No Do you have trouble paying your heating and electricity bill?: No Do you have trouble taking care of your child, family member or friend?: No Do you have trouble with day-to-day activities such as bathing, preparing meals, shopping, managing finances, etc.?: No Are you currently unemployed and looking for a job?: No Are you interested in more education?: No Please select the resources that you would like help with: None Currently or been in a relationship where the following occur: No concerns reported THRIVE Score: 0 AUDIT C Alcohol Use Questionnaire (AUDIT-C) 3. How often do you have six or more drinks on one occasion?: Never Total Score: 0 QUANG-7 AMB Questionnaire QUANG-7 Date QUANG - 7 assessed: 08/26/24 Feeling nervous, anxious, or on edge: 0 = Not at all Not being able to stop or control worryin = Not at all Worrying too much about different things: 0 = Not at all Trouble relaxin = Not at all Being so restless that it is hard to sit still: 0 = Not at all Becoming easily annoyed or irritable: 0 = Not at all Feeling afraid as if something awful might happen: 0 = Not at all Total QUANG-7 score (0-4 normal; 5-9 mild; 10-14 moderate; 15-21 severe): 0 Source: Developed by Drs. Booker Osuna, Kriss Karimi, Winston Lee and colleagues, with an educational aguilar from [employer]. Physical exam (Primary Care) Vital Signs: Last Vital Signs Pulse 87 08/26/24 10:10 BP 160/72 H 08/26/24 10:10 Pulse Ox 96 08/26/24 10:10 Oxygen Delivery Method Room Air 08/26/24 10:10 BMI result Body Mass Index 27.8 Tobacco/Smoking Status: Tobacco use Status Tobacco use date assessed 08/26/24 08/26/24 10:15 Patient Tobacco Use Status Former Tobacco user 08/26/24 10:15 Tobacco use type Cigarette 08/26/24 10:15 e-Cigarette/Vaping Use Never Used 08/26/24 10:15 PHQ-9: PHQ-9 Score PHQ-9: Total score 0 08/26/24 10:28 Depression Screening Interpretation: Negative Thrive Assessment: Date of Thrive Assessment Date Thrive assessed 08/26/24 08/26/24 10:15 Currently or been in a relationship where the following occur: No concerns reported Coding Level of Care Code Est Pt Level 4 (31412) Complex EM visit Add On G2211 Diagnoses Hypertension I10 Impaired glucose tolerance R73.02 Tobacco abuse Z72.0 Hypercholesterolemia E78.00 Psoriasis L40.9 Assessment & Plan Assessment & Plan (1) Hypertension: Comment: cont same meds Code(s): I10 - Essential (primary) hypertension Category: Medical Plan: Continue with blood pressure medication. Decrease salt intake and exercise patient is on lisinopril 20 mg once a day hydrochlorothiazide 12.5 mg once a day (2) Impaired glucose tolerance: Code(s): R73.02 - Impaired glucose tolerance (oral) Category: Medical Plan: Decrease the amount of carbohydrate intake, pasta, bread, rice and potatoes are all sugar and that is aside from all the sweet stuff, remember that fruits are good but they are Sweet also. (3) Tobacco abuse: Code(s): Z72.0 - Tobacco use Category: Medical Plan: Patient is strongly advised to stop smoking (4) Hypercholesterolemia: Code(s): E78.00 - Pure hypercholesterolemia, unspecified Category: Medical Plan: Avoid fried foods, chicken skin, eggs, butter margarine, pastries and meat. Be it pork or beef they have a lot of cholesterol LDL goal of less than 130 and triglyceride of less than 150. Diet controlled (5) Psoriasis: Code(s): L40.9 - Psoriasis, unspecified Category: Medical Plan: Continue follow-up with Dermatology. Plan History of Present Illness The patient is a 74-year-old male presenting for follow-up of hypertension management and health maintenance. Manages hypertension with hydrochlorothiazide and lisinopril. Reports recent high blood pressure readings at the doctor's office. Blood sugar levels noted mildly elevated, though hemoglobin A1c remains normal. Cholesterol under control; LDL is within target, with goals set for further reductions. Past history includes treated prostate cancer and positive Cologuard in 2021, with refusal for colonoscopy. Has occasional cigar smoking habits despite advice against it. Suffers from worsening psoriasis, handled with dermatological care and tar treatments. Concerns of lightheadedness upon medical visits are raised by the patient. His recent lab work from February 2024 shows normal blood count, electrolytes, renal function, and normal levels of B12, folic acid, and thyroid function. No further symptoms of chest pain, falls, or notable visual impairment; minor cataracts were earlier noted. Continues with vardenafil, probiotics, Claritin, and multivitamins. Health Maintenance - Hypertension management with hydrochlorothiazide and lisinopril. - Blood pressure home monitoring advised. - Elevated sugar levels noted in blood work; regular monitoring recommended. - Cholesterol management, target: LDL <130 mg/dL, triglycerides <150 mg/dL. - Prostate health monitoring with PSA levels. - Ongoing dermatology consultation for psoriasis. - Compliance with medications and net programmer analyst recommendations emphasized. - Discussed significance of hydration and maintaining an active lifestyle. - Smoking cessation is advised. - Flu and pneumonia vaccines status discussed; shingles vaccination not recommended post-infection. Social History - Occasional cigar smoker. - Impaired activity level. - Reports weight gain; exercise includes daily morning walks and yard work. Review of Systems - Cardiovascular: Reports lightheadedness when visiting medical facilities. - Respiratory: Denies chest pain or shortness of breath. - Dermatological: Reports itchiness and discomfort due to psoriasis; uses tar-based treatments. Physical Exam - Cardiovascular- High blood pressure observed at the visit. Results - Labs, February 2024: Normal blood count, normal electrolytes, normal renal function. - Cholesterol levels better; LDL under control. - Mildly elevated blood sugar; normal hemoglobin A1c. - Normal B12, folic acid, and thyroid function. Plan Today's visit centered on managing essential hypertension, with continued medication regimen and the recommendation for home blood pressure monitoring. Monitoring of mildly elevated glucose levels will continue without adjusting the treatment for impaired glucose tolerance. Current lipid management goals are maintained with successful control of cholesterol levels. Recommendations for lifestyle adjustments to curb cigar smoking were reiterated. The worsening of psoriasis was addressed with ongoing dermatological oversight and topical treatments, while compliance with net programmer analyst recommendations was encouraged. Despite previous refusal, colonoscopy consideration due to positive Cologuard was again suggested. Patient was informed and verbally consented to the use of an ambient scribe for clinic note documentation during this visit. Discussion Notes During our discussion, I addressed essential hypertension management and the importance of blood pressure home monitoring. We talked about controlling high cholesterol levels and managing glucose intolerance with routine checks, without alterations to current management as the hemoglobin A1c is normal. The discussion reiterated suggested lifestyle changes and emphasized the risks of smoking given the patient's history. We talked about psoriasis management and the benefits of continued net programmer analyst engagement. We revisited the suggestion of a colonoscopy following a positive Cologuard test, which the patient previously declined. The patient expressed understanding and agreement with the need for regular checks and adjustments but remained non-committal on accepting further invasive testing for colon health at this time. Patient Instructions - Monitor blood pressure regularly at home. - Follow a healthy lifestyle, including balanced diet and regular exercise. - Quit smoking completely. - Keep all dermatology appointments, continue using prescribed skin treatments. - Regularly monitor glucose levels. - Comply with current medication regimen. - Drink sufficient water daily. - Consider colonoscopy for further investigation of positive Cologuard result. - Schedule follow-up blood work as advised. - Return for consultation if blood pressure remains consistently high or above 140 mmHg. Orders: Orders Free T4 (Free Thyroxine) 6 Months E78.00 - Pure hypercholesterolemia, unspecified Complete Blood Count Auto Diff 6 Months E78.00 - Pure hypercholesterolemia, unspecified Prostate Specific Antigen Scr 6 Months C61 - Malignant neoplasm of prostate Lipid Panel 6 Months E78.00 - Pure hypercholesterolemia, unspecified, R73.02 - Impaired glucose tolerance (oral) Comprehensive Met. Panel 6 Months R73.02 - Impaired glucose tolerance (oral) Hemoglobin A1c 6 Months R73.02 - Impaired glucose tolerance (oral) Thyroid Stimulating Hormone 6 Months E78.00 - Pure hypercholesterolemia, unspecified Vitamin B12 and Folate 6 Months E78.00 - Pure hypercholesterolemia, unspecified Medications: Refilled vardenafil 20 mg PO DAILY 10 tabs 11RF
[2024-08-26 10:10] VITALS: BP 160/72; PULSE 87; O2SAT 96; BMI 27.8
== END 2024-08-26 10:29 | disposition home or self-care (01) ==
LOC: HO.HMCH 10:02
PROVIDERS: PCP Internal Medicine; Visit Provider Internal Medicine
DX: I10 Essential (primary) hypertension (principal); R73.02 Impaired glucose tolerance (oral); Z72.0 Tobacco use; E78.00 Pure hypercholesterolemia, unspecified; L40.9 Psoriasis, unspecified

== ENCOUNTER 2024-11-24 07:20 | Outpatient (REF) | payer OTHER, SELFPAY ==
[2024-11-24 10:38] LABS: Alanine Aminotransferase 21 U/L (0-40); Albumin Level 4.5 g/dL (3.5-5.0); Alkaline Phosphatase 45 U/L (39-117); Anion Gap 13 (12-20); Aspartate Amino Transferase 23 U/L (5-37); Bilirubin Total 0.7 mg/dL (0.0-1.0); Blood Urea Nitrogen 18 mg/dL (9-16); Calcium 9.4 mg/dL (8.4-10.2); Carbon Dioxide 27 mmol/L (22-29); Chloride 104 mmol/L (96-108); Estimated Glomerular Filt Rate > 60; Glucose Random 121 mg/dL (60-115); Potassium 3.9 mmol/L (3.3-5.1); Sodium 140 mmol/L (135-145); Total Protein 7.7 g/dL (6.5-8.0)
== END 2024-11-24 07:21 | disposition home or self-care (01) ==
LOC: HO.HMGCLDS 07:20
PROVIDERS: PCP Internal Medicine; Visit Provider Internal Medicine
DX: I10 Essential (primary) hypertension (principal)
CPT/HCPCS: 36415; 80053

== ENCOUNTER 2025-03-17 10:16 | Outpatient (AMB) | payer OTHER, SELFPAY ==
[2025-03-17 10:25] VITALS: BP 130/74; PULSE 78; TEMP 36.2; O2SAT 97; BMI 25.7
--- NOTE | 2025-03-17 10:25 | A.OFFPC_ITS ---
Vital Signs 03/17/25 10:25 Height 5 ft 10 in Weight 179 lb 4 oz BMI 25.7 BP 130/74 Blood Pressure Location Lt brachial Position Sitting Pulse 78 Pulse Source Pulse Oximeter Temp 97.1 F Temp Source Temporal Artery Scan Pulse Oximetry (%) 97 Oxygen Delivery Method Room Air Intake Visit Reasons: annual exam Allergies penicillin V Allergy (Mild, Verified 03/17/25 10:30) Unknown Medication List - Last Reconciled 03/17/25 by Thony Lopez MD clotrimazole 1% 1 appl topical BID 4 weeks coal tar 0.5% 1 appl topical 2XW hydrochlorothiazide 12.5 mg PO DAILY ketoconazole 2% 1 appl topical 3XW lactobacillus combination no.4 (Probiotic) 3,000 mmu cells PO DAILY lisinopril 30 mg PO DAILY loratadine (Claritin) 10 mg PO DAILY mometasone 0.1% 1 appl topical DAILY 2 weeks multivitamin 1 tab PO DAILY triamcinolone acetonide 0.1% 1 appl topical BID vardenafil 20 mg PO DAILY Tobacco use date assessed: 03/17/25 Fall risk assessment: No Falls in past year Last assessed Fall Risk: 03/17/25 Dental Screening Dental Screen Date: 03/17/25 Did you have a dental visit in the last 12 months?: Yes Did you have a dental problem in the last 6 months where you did not have access to dental care?: No Was dental information given to patient?: Patient has dentist HPI annual exam HPI Details melanoma removed R angle of mouth Aldo Kearney 02/2025 [facility] Medical History Colon cancer screening Hx of flexible sigmoidoscopy Hypercholesterolemia Tobacco abuse Prostate cancer Impaired glucose tolerance Hypertension Surgical History H/O colonoscopy H/O prostatectomy History of inguinal hernia repair Family History Father Medical history unknown Mother Medical history unknown Social History Housing: House Alcohol intake: never Patient Tobacco Use Status: Former Tobacco user Tobacco use type: Cigarette Years Smoked: smokes cigars e-Cigarette/Vaping Use: Never Used Second Hand Smoke Exposure: No service: No Current occupational status: retired Cognitive needs: No Hearing needs: No Vision needs: Yes Questionnaire PHQ-9 Over the last 2 weeks, how often have you been bothered by any of the following problems? 1. Little interest or pleasure in doing things: more than half the days 2. Feeling down, depressed, or hopeless: not at all 3. Trouble falling or staying asleep, or sleeping too much: not at all 4. Feeling tired or having little energy: not at all 5. Poor appetite or overeating: not at all 6. Feeling bad about yourself - or that you are a failure or have let yourself or your family down: not at all 7. Trouble concentrating on things, such as reading the newspaper or watching television: not at all 8. Moving or speaking so slowly that other people could have noticed. Or the opposite - being so fidgety or restless that you have been moving around a lot more than usual: not at all 9. Thoughts that you would be better off or of hurting yourself in some way: not at all Total score: 2 Source: Developed by Drs. Booker Osuna, Kriss Karimi, Winston Lee and colleagues, with an educational aguilar from [employer]. Thrive Questionnaire Date Thrive assessed: 08/26/24 I am a: Patient What is your living situation today?: I have a steady place to live Within the past 12 months, did the food you bought not last and you didn't have the money to get more?: I choose not to answer this question Within the past 12 months, did you worry whether your food would run out before you got money to buy more?: I choose not to answer this question Do you have trouble paying for medicines?: I choose not to answer this question Do you have trouble getting transportation to medical appointments?: I choose not to answer this question Do you have trouble paying your heating and electricity bill?: I choose not to answer this question Do you have trouble taking care of your child, family member or friend?: I choose not to answer this question Do you have trouble with day-to-day activities such as bathing, preparing meals, shopping, managing finances, etc.?: I choose not to answer this question Are you currently unemployed and looking for a job?: No Are you interested in more education?: I choose not to answer this question Please select the resources that you would like help with: None Currently or been in a relationship where the following occur: I choose not to answer THRIVE Score: 0 AUDIT C Alcohol Use Questionnaire (AUDIT-C) 1. How often do you have a drink containing alcohol?: Monthly or less 2. How many drinks containing alcohol do you have on a typical day when you are drinking?: 1 or 2 3. How often do you have six or more drinks on one occasion?: Never Total Score: 1 QUANG-7 AMB Questionnaire QUANG-7 Date QUANG - 7 assessed: 08/26/24 Feeling nervous, anxious, or on edge: 0 = Not at all Not being able to stop or control worryin = Not at all Worrying too much about different things: 0 = Not at all Trouble relaxin = Not at all Being so restless that it is hard to sit still: 0 = Not at all Becoming easily annoyed or irritable: 0 = Not at all Feeling afraid as if something awful might happen: 0 = Not at all Total QUANG-7 score (0-4 normal; 5-9 mild; 10-14 moderate; 15-21 severe): 0 Source: Developed by Drs. Booker Osuna, Kriss Karimi, Winston Lee and colleagues, with an educational aguilar from [employer]. Review of Systems Const Denies poor appetite and Denies weakness Eyes Denies no additional complaints ENT Reports Normal hearing present, Denies dizziness, Denies nasal congestion, Denies tinnitus and Denies sore throat Card Denies chest pain, Denies syncope, Denies rapid heart rate and Denies dyspnea Resp Denies cough and Denies dyspnea GI Denies change in stool character, Reports constipation, Denies diarrhea, Denies nausea and Denies vomiting Denies dysuria and Denies urinary frequency Neuro Reports Normal hearing present, Denies confusion, Denies dizziness, Denies syncope and Denies weakness Psych Denies confusion Physical exam (Primary Care) Vital Signs: Last Vital Signs Temp 97.1 F 03/17/25 10:25 Pulse 78 03/17/25 10:25 BP 130/74 03/17/25 10:25 Pulse Ox 97 03/17/25 10:25 Oxygen Delivery Method Room Air 03/17/25 10:25 BMI result Body Mass Index 25.7 Tobacco/Smoking Status: Tobacco use Status Tobacco use date assessed 03/17/25 03/17/25 10:31 Patient Tobacco Use Status Former Tobacco user 03/17/25 10:31 Tobacco use type Cigarette 03/17/25 10:31 e-Cigarette/Vaping Use Never Used 03/17/25 10:31 PHQ-9: PHQ-9 Score PHQ-9: Total score 2 03/17/25 11:03 Thrive Assessment: Date of Thrive Assessment Date Thrive assessed 08/26/24 03/17/25 10:31 Currently or been in a relationship where the following occur: I choose not to answer Const General: No confusion Orientation/consciousness: No confusion HENMT Head: Yes normocephalic Ears: external ears normal and TM's normal bilaterally Face and sinus: Yes normal facial exam Mouth: moist mucous membranes Throat: Yes tonsils normal Eyes Conjunctivae: conjunctivae normal Pupils: Equal, round and reactive pupils present and Pupil accommodation reflex normal Direct Ophthalmoscopy: normal light reflex Neck Neck: No lymphadenopathy Thyroid: Thyroid normal Chest Chest palpation & inspection: normal inspection of the chest Resp Effort & Inspection: normal respiratory effort and no audible wheezes Auscultation: clear to auscultation bilaterally, no crackles, no wheezes and lung sounds not diminished Cardio Rate: regular rate Rhythm: regular rhythm Peripheral pulses: radial pulses present and dorsalis pedis present GI Other: declined Palpation (GI): no masses Auscultation: normal bowel sounds and normoactive bowel sounds Rectal Exam - Male: Yes deferred Skin General skin exam: no rashes or lesions noted Rashes: no rashes Neuro General: No confusion Cranial nerves: Yes Equal, round and reactive pupils present and Yes Normal hearing present Cognition (Neuro): normal cognition Gait exam (Neuro): Normal gait present Motor exam (neuro): 5/5 motor strength present throughout Deep tendon reflexes (DTR's): Right brachioradialis reflex intensity grade: 2+, Left brachioradialis reflex intensity grade: 2+, Right patellar reflex intensity grade: 2+ and Left patellar reflex intensity grade: 2+ Extrem General: No edema Office Procedures Flu Questionnaire Does the patient have a severe egg allergy?: No Does the patient have severe life threatening allergies?: No Does the patient have a fever or illness today?: No Has the patient ever had Guillain-[place] Syndrome?: No Has the patient ever had any past reaction to a flu shot?: No Immunizations Fluarix [id number] (PF) 45 mcg (15 mcg x 3)/0.5 mL IM syringe Performing Provider: Thony Lopez MD Performing Location: [facility] Administered by: Oanh Kearney CMA on 03/17/25 10:38 Dose Route Admin Location Dispensed Lot Number Expiration Date [facility] Bar Machine Operator Multiple Spindle 0.5 mL IM Left Deltoid 0.5 mL [id number] 12/06/25 [id number] Modulus VIS Given Date VIS Provided VIS Publication Date 03/17/25 Single Vaccine 24 Eligibility Eligibility Date Funding Source Not [facility] Eligible 03/17/25 Private Coding Level of Care Code Est Pt Prev Care >65y(58701) Diagnoses Annual physical exam Z00.00 Tobacco abuse Z72.0 Hypertension I10 Hypercholesterolemia E78.00 Impaired glucose tolerance R73.02 Prostate cancer C61 Psoriasis L40.9 Melanoma C43.9 Assessment & Plan Assessment & Plan (1) Annual physical exam: Code(s): Z00.00 - Encounter for general adult medical examination without abnormal findings Category: Medical Plan: Patient is advised to eat healthy, keep well hydrated, keep active and have adequate sleep. (2) Tobacco abuse: Code(s): Z72.0 - Tobacco use Category: Medical Plan: Patient is strongly advised to stop smoking! (3) Hypertension: Comment: cont same meds Code(s): I10 - Essential (primary) hypertension Category: Medical Plan: Continue with blood pressure medication. Decrease salt intake and exercise on hydrochlorothiazide lisinopril (4) Hypercholesterolemia: Code(s): E78.00 - Pure hypercholesterolemia, unspecified Category: Medical Plan: Avoid fried foods, chicken skin, eggs, butter margarine, pastries and meat. Be it pork or beef they have a lot of cholesterol (5) Impaired glucose tolerance: Code(s): R73.02 - Impaired glucose tolerance (oral) Category: Medical Plan: Decrease the amount of carbohydrate intake, pasta, bread, rice and potatoes are all sugar and that is aside from all the sweet stuff, remember that fruits are good but they are Sweet also. (6) Prostate cancer: Comment: 1999 Code(s): C61 - Malignant neoplasm of prostate Category: Medical Plan: Continuing to monitor (7) Psoriasis: Code(s): L40.9 - Psoriasis, unspecified Category: Medical Plan: On mometasone as needed (8) Melanoma: Comment: s/p removal R angle of mouth Dr. Carlson and dr. Kearney 02/2025 Code(s): C43.9 - Malignant melanoma of skin, unspecified Category: Medical Plan History of Present Illness The patient is a 74-year-old male presenting for a wellness visit and follow-up on chronic conditions. He has a history of hypertension, which is currently managed with lisinopril and hydrochlorothiazide, and his blood pressure is well- controlled. The patient also has hypercholesterolemia and impaired glucose tolerance, [facility] is under a monitoring plan. He has been advised to maintain a healthy lifestyle to manage these conditions. 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 The sutures from the melanoma surgery have been removed. He has psoriasis and is using mometasone as needed for management. The patient is a smoker and has been strongly advised to stop smoking to improve his overall health. Health Maintenance - Smoking cessation advice provided - Blood work requested for glucose monitoring - Discussion about vaccines, declined shingles vaccine Social History - Tobacco use: Smoker of tobacco products Review of Systems Physical Exam General: Cooperative, healthy appearing, comfortable, no acute distress and well developed Orientation: Patient oriented x3 Limitations: No limitations Head: Normal to inspection Ears: Hearing grossly normal bilaterally Nose: Normal external nose present Face and sinus: Normal facial exam Eyes: Appearance normal, both eyes and all related structures Neck: Normal visual inspection and Yes full ROM Respiratory: Normal respiratory effort and able to speak in complete sentences. Clear to auscultation bilaterally Cardiovascular: Regular rate and rhythm. Normal S1 and S2 GI: Normal to inspection. Soft to palpation and nontender Skin: No rashes or lesions noted, history of melanoma on the right edge of the mouth with recent surgery and suture removal, psoriasis present Neuro: Patient oriented x3 Extremities: Normal to inspection Results Plan Patient was informed and verbally consented to the use of an ambient scribe for clinic note documentation during this visit. 1. Hypertension The patient's hypertension is managed with lisinopril and hydrochlorothiazide, and his blood pressure remains well-controlled. 2. Hypercholesterolemia The patient is advised to maintain a healthy lifestyle to manage hype rcholesterolemia. 3. Impaired Glucose Tolerance Blood work has been requested to monitor glucose levels. 4. Psoriasis The patient is using mometasone as needed for psoriasis management. 5. Tobacco Use The patient has been strongly advised to stop smoking to improve overall health. Discussion Notes During the visit, I discussed the importance of smoking cessation with the p atranjit and emphasized the benefits for his overall health. We reviewed his current management plans for hypertension, hypercholesterolemia, and impaired glucose tolerance, and I advised him to maintain a healthy lifestyle. I also discussed the option of receiving a shingles vaccine, which the patient declined. Patient Instructions - Stop smoking to improve health. - Continue taking lisinopril and hydrochlorothiazide as prescribed. - Follow a healthy lifestyle to manage cholesterol and glucose levels. - Consider getting vaccinated for shingles in the future. Orders: Orders Influenza [id number] Immunization Today Z23 - Encounter for immunization
== END 2025-03-17 11:20 | disposition home or self-care (01) ==
LOC: HO.HMCH 10:17
PROVIDERS: PCP Internal Medicine; Visit Provider Internal Medicine
DX: Z00.00 Encounter for general adult medical examination without abnormal findings (principal); C61 Malignant neoplasm of prostate; I10 Essential (primary) hypertension; C43.9 Malignant melanoma of skin, unspecified; Z72.0 Tobacco use; E78.00 Pure hypercholesterolemia, unspecified; R73.02 Impaired glucose tolerance (oral); L40.9 Psoriasis, unspecified; Z23 Encounter for immunization

== ENCOUNTER → 2025-03-17 10:16 | Outpatient (BNVA) | payer OTHER, SELFPAY | PROVIDERS: PCP Internal Medicine; Visit Provider Internal Medicine | DX: Z00.00 Encounter for general adult medical examination without abnormal findings (principal); I10 Essential (primary) hypertension; E78.00 Pure hypercholesterolemia, unspecified; R73.02 Impaired glucose tolerance (oral); C61 Malignant neoplasm of prostate; L40.9 Psoriasis, unspecified; C43.9 Malignant melanoma of skin, unspecified; Z23 Encounter for immunization | CPT/HCPCS: 90471; 90656; 96127 ==